=== PATIENT | female | born 1970 | race Hispanic/Latino ===

== ENCOUNTER 2022-08-06 09:14 | Outpatient (CLI) | payer OTHER | END 2022-08-06 09:15 | disposition home or self-care (01) | LOC: CSHMRI 09:14 | PROVIDERS: ATTEND Internal Medicine Gastroenterology | DX: K74.60 Unspecified cirrhosis of liver (principal); R18.8 Other ascites; I85.00 Esophageal varices without bleeding; D64.9 Anemia, unspecified; R13.19 Other dysphagia; K76.6 Portal hypertension | CPT/HCPCS: 74183 ==